=== PATIENT | male | born 1970 ===

== ENCOUNTER 2021-11-23 05:45 | Day surgery (SDC) | payer OTHER ==
[2021-11-23] MEDS ORDERED: NEXIUM 24HR20 MG PO (08:18)
== END 2021-11-23 09:30 | disposition home or self-care (01) ==
LOC: AMB-ENDOS 05:45
PROVIDERS: ATTEND Surgery
DX: R10.13 Epigastric pain (principal); K44.9 Diaphragmatic hernia without obstruction or gangrene; Z20.822 Contact with and (suspected) exposure to COVID-19; I10 Essential (primary) hypertension